=== PATIENT | female | born 1995 | race Caucasian/White ===

== ENCOUNTER → 2023-06-19 09:26 | Outpatient (REF) | payer OTHER, SELFPAY | LOC: HWRAD 09:26 | PROVIDERS: ATTENDING PHYSICIAN Nurse Practitioner Family; FAMILY PHYSICIAN Family Medicine | DX: N92.1 Excessive and frequent menstruation with irregular cycle (principal) | CPT/HCPCS: 76830; 76856 ==

== ENCOUNTER 2024-07-27 17:36 | Observation (INO) | payer OTHER, SELFPAY ==
[2024-07-27 17:48] VITALS: BP 104/61; BMI 24.2
[2024-07-27 17:54] LABS: Hematocrit 31.8 % (37.0-47.0); Hemoglobin 10.7 g/dL (12.0-16.0); Mean Corp Hgb Conc. 33.6 g/dL (33.0-37.0); Mean Corpuscular Hgb 29.2 pg (27.0-31.0); Mean Corpuscular Volume 86.6 fL (81.0-99.0); Mean Platelet Volume 8.9 fL (7.4-10.4); Platelet Count 184 10^3/uL (130-400); Red Blood Cell Count 3.67 10^6/uL (4.20-5.40); Red Cell Dist. Width 13.8 % (11.5-14.5); White Blood Cell Count 9.4 10^3/uL (4.8-10.8)
== END 2024-07-27 21:59 | disposition home or self-care (01) ==
LOC: LDRP 17:36
PROVIDERS: ADMITTING PHYSICIAN Obstetrics & Gynecology
DX: O26.892 Other specified pregnancy related conditions, second trimester (principal); Z3A.23 23 weeks gestation of pregnancy; Z04.1 Encounter for examination and observation following transport accident; R10.9 Unspecified abdominal pain; V47.5XXA Car driver injured in collision with fixed or stationary object in traffic accident, initial encounter; Y93.89 Activity, other specified; Y92.414 Local residential or business street as the place of occurrence of the external cause; R51.9 Headache, unspecified
CPT/HCPCS: 76815; 85027; 85460; G0378

== ENCOUNTER 2024-11-18 02:57 | Inpatient (IN) | payer OTHER, SELFPAY ==
[2024-11-18 03:36] VITALS: BP 136/71; BMI 27.5
[2024-11-18] MEDS: SUBLIMAZE 100 MCG EPIDURAL (05:09)
[2024-11-18] MEDS: FENTANYL/BUPIVACAINE 100 EPIDURAL ×2 (05:09→13:39)
[2024-11-18 05:18] LABS: Hematocrit 35.7 % (37.0-47.0); Hemoglobin 12.1 g/dL (12.0-16.0); Mean Corp Hgb Conc. 33.9 g/dL (33.0-37.0); Mean Corpuscular Volume 90.2 fL (81.0-99.0); Platelet Count 148 10^3/uL (130-400); Red Cell Dist. Width 16.2 % (11.5-14.5)
[2024-11-18] MEDS: LR 1000 IV ×2 (05:29→11:34)
[2024-11-18] MEDS: PITOCIN 30 UNITS/NSS 500 ML IV (12:11)
[2024-11-18] MEDS: FEOSOL PO (16:22)
[2024-11-18] MEDS: TYLENOL 650 MG PO ×2 (17:30→23:50)
[2024-11-18] MEDS: MOTRIN 600 MG PO ×2 (17:30→23:50)
[2024-11-18] MEDS: COLACE 100 MG PO (20:11)
[2024-11-18] MEDS: FLOVENT 44 MCG INHALER 1 PUFF INH (21:29)
[2024-11-19 05:09] LABS: Hematocrit 30.8 % (37.0-47.0); Hemoglobin 10.5 g/dL (12.0-16.0)
[2024-11-19] MEDS: MOTRIN 600 MG PO ×2 (07:14→14:28)
[2024-11-19] MEDS: PRENATAL PLUS 1 TABLET PO (07:14)
[2024-11-19] MEDS: TYLENOL 650 MG PO ×2 (07:14→14:28)
[2024-11-19] MEDS: COLACE 100 MG PO ×2 (07:14→20:37)
[2024-11-19] MEDS: FEOSOL 325 MG PO (07:15)
[2024-11-19] MEDS: FLOVENT 44 MCG INHALER 1 PUFF INH ×2 (08:04→20:12)
[2024-11-19 13:35] LABS: Syphilis/T. pallidum Ab Reflex Negative (Negative)
--- NOTE | 2024-11-20 02:47 | DOWNTIME ---
There was a [employer] Downtime on 11/20/2024 from 0100 to 11/20/2024 at 0235. Downtime documentation of patient's care, including medication administrations, has been reconciled in the electronic record per guidelines. Refer to the
patient's paper chart under the miscellaneous tab to see printed paper medication records and downtime forms.
[2024-11-20] MEDS: FLOVENT 44 MCG INHALER 1 PUFF INH (07:23)
[2024-11-20] MEDS: MOTRIN 600 MG PO (08:25)
[2024-11-20] MEDS: COLACE 100 MG PO (08:25)
[2024-11-20] MEDS: PRENATAL PLUS 1 TABLET PO (08:25)
== END 2024-11-20 12:15 | disposition home or self-care (01) | DRG 807 ==
LOC: LDRP 02:57
PROVIDERS: Obstetrics & Gynecology; ADMITTING PHYSICIAN Obstetrics & Gynecology
PROC: 10E0XZZ Delivery of Products of Conception, External Approach (ICD-10-PCS; 2024-11-18)
PROC: 0KQM0ZZ Repair Perineum Muscle, Open Approach (ICD-10-PCS; 2024-11-18)
DX: O70.1 Second degree perineal laceration during delivery (principal); Z37.0 Single live birth; Z3A.39 39 weeks gestation of pregnancy
CPT/HCPCS: 85014; 85018; 85027; 86780; 86850; 86900; 86901; 94640